=== PATIENT | male | born 1955 | race Caucasian/White ===

== ENCOUNTER → 2018-07-02 | Outpatient (CLI) | payer OTHER ==
[~2018-07-02] MED LIST: ASPIRIN81 M1 PO; ATIVAN1 MG PO; AUGMENTIN 875 M1 TAB PO; MULTI VITAMINS1 TAB PO; ZESTRIL30 MG PO; ZOCOR40 MG PO
== END | disposition home or self-care (01) ==
LOC: RAD 16:11
DX: M47.897 Other spondylosis, lumbosacral region (principal); M75.31 Calcific tendinitis of right shoulder; M75.41 Impingement syndrome of right shoulder; Z91.81 History of falling

== ENCOUNTER 2022-10-03 10:33 | Emergency (ER) | payer OTHER ==
[~2022-10-03] VITALS: Ht 172.7 cm; Wt 78.0 kg
[2022-10-03 10:54] LABS: BASO # 0.1 10*3/uL (0.0-0.1); EOS # 0.1 10*3/uL (0.0-0.4); EOS % 1.1 % (1.0-4.0); HEMATOCRIT 42.9 % (42.0-52.0); LYMPH # 2.1 10*3/uL (1.3-4.4); LYMPH % 20.6 % (27.0-41.0); MEAN CELL VOLUME 90.7 fl (80.0-94.0); MEAN CORPUSCULAR HGB 30.2 pg (27.0-31.0); MEAN CORPUSCULAR HGB CONC 33.3 g/dl (33.0-37.0); MEAN PLATELET VOLUME 9.2 fl (9.6-12.3); NEUT # 6.6 10*3/uL (2.3-7.9); NEUT % 65.7 % (47.0-73.0); PLATELET COUNT AUTOMATED 332 10*3/uL (130-400); RED BLOOD COUNT 4.73 10*6/uL (4.50-5.90); RED CELL DISTRI WIDTH 14.3 % (0-14.5); WHITE BLOOD COUNT 10.1 10*3/uL (4.8-10.8)
[2022-10-03 11:11] LABS: ALKALINE PHOSPHATASE 65 U/L (46-116); BUN 16 mg/dl (9-23); CHLORIDE 102 mmol/L (98-107); POTASSIUM 3.4 mmol/L (3.4-5.1); SGPT/ALT 41 U/L (10-49); TOTAL PROTEIN 6.6 gm/dL (6.0-8.0)
== END 2022-10-03 12:00 | disposition short-term general hospital (02) ==
LOC: ED 10:33
PROVIDERS: Emergency Medicine
DX: I46.9 Cardiac arrest, cause unspecified (principal); Z90.49 Acquired absence of other specified parts of digestive tract; I10 Essential (primary) hypertension; E78.5 Hyperlipidemia, unspecified

== ENCOUNTER 2023-08-21 19:21 | Emergency (ER) | payer OTHER, MEDICARE ==
[~2023-08-21] VITALS: Ht 604.5 cm; Wt 82.6 kg
[2023-08-21] MEDS ORDERED: PLAVIX75 M1 PO (20:04)
== END 2023-08-21 22:03 | disposition home or self-care (01) ==
LOC: ED 19:21
DX: H92.21 Otorrhagia, right ear (principal); I10 Essential (primary) hypertension; F41.9 Anxiety disorder, unspecified; E78.00 Pure hypercholesterolemia, unspecified; Z90.49 Acquired absence of other specified parts of digestive tract

== ENCOUNTER 2023-08-23 14:19 | Emergency (ER) | payer OTHER, MEDICARE ==
[~2023-08-23] VITALS: Ht 175.2 cm; Wt 82.6 kg
[~2023-08-23 14:19] MED LIST changes: +PLAVIX75 M1 PO
== END 2023-08-23 15:59 | disposition home or self-care (01) ==
LOC: ED 14:19
DX: T16.1XXA Foreign body in right ear, initial encounter (principal); F41.9 Anxiety disorder, unspecified; I10 Essential (primary) hypertension; E78.00 Pure hypercholesterolemia, unspecified; Z90.49 Acquired absence of other specified parts of digestive tract

== ENCOUNTER 2023-11-24 15:25 | Emergency (ER) | payer OTHER, MEDICARE ==
[~2023-11-24] VITALS: Ht 167.6 cm; Wt 85.3 kg
[2023-11-24 16:43] LABS: BILIRUBIN Negative (Negative); BLOOD 2+ (Negative); CLARITY Clear (Clear); COLOR Yellow (Yellow); GLUCOSE Negative (Negative); KETONE 1+ (Negative); LEUKO ESTERASE Negative (Negative); NITRITE Negative (Negative); PH 5.5 (4.5-8.0); UROBILINOGEN 0.2 E.U./dl (0.0-1.0)
[2023-11-24 16:51] LABS: BACTERIA 1+; RBC 21-30 rbc/hpf (0-2)
[2023-11-24] MEDS ORDERED: Ciprofloxacin Hydrochloride 500 MG TAB PO ONE (17:40)
[2023-11-24] MEDS ORDERED: Tamsulosin Hydrochloride 0.4 MG CAP PO ONE (17:40)
[2023-11-24] MEDS ORDERED: FLOMAX0.4 MG PO (17:52)
[2023-11-24] MEDS ORDERED: CIPRO500 MG PO (17:52)
[2023-11-24] MEDS ORDERED: KETOROLAC10 MG PO (17:52)
== END 2023-11-24 17:58 | disposition home or self-care (01) ==
LOC: ED 15:25
PROVIDERS: Nurse Practitioner Family
DX: N13.2 Hydronephrosis with renal and ureteral calculous obstruction (principal); I10 Essential (primary) hypertension; F41.9 Anxiety disorder, unspecified; E78.00 Pure hypercholesterolemia, unspecified; Z90.49 Acquired absence of other specified parts of digestive tract; F17.200 Nicotine dependence, unspecified, uncomplicated

== ENCOUNTER 2024-08-31 12:19 | Emergency (ER) | payer OTHER ==
[~2024-08-31 12:19] MED LIST changes: +CIPRO500 MG PO; +FLOMAX0.4 MG PO; +KETOROLAC10 MG PO
[2024-08-31] MEDS ORDERED: LISINOPRIL10 M1 PO (12:51)
[2024-08-31] MEDS ORDERED: LORAZEPAM1 MG PO (12:51)
[2024-08-31] MEDS ORDERED: ROSUVASTATIN CA10 MG PO (12:51)
[2024-08-31 13:12] LABS: BASO # 0.1 10*3/uL (0.0-0.1); BASO % 0.9 % (0.0-1.0); EOS # 0.1 10*3/uL (0.0-0.4); EOS % 0.6 % (1.0-4.0); HEMATOCRIT 48.4 % (42.0-52.0); MEAN CELL VOLUME 93.3 fl (80.0-94.0); MEAN CORPUSCULAR HGB 30.1 pg (27.0-31.0); MEAN CORPUSCULAR HGB CONC 32.2 g/dl (33.0-37.0); MEAN PLATELET VOLUME 9.7 fl (9.6-12.3); MONO # 0.8 10*3/uL (0.1-1.0); MONO % 9.8 % (3.0-9.0); NEUT # 5.8 10*3/uL (2.3-7.9); NEUT % 71.2 % (47.0-73.0); PLATELET COUNT AUTOMATED 272 10*3/uL (130-400); RED BLOOD COUNT 5.19 10*6/uL (4.50-5.90); RED CELL DISTRI WIDTH 13.6 % (0-14.5); WHITE BLOOD COUNT 8.2 10*3/uL (4.8-10.8)
[2024-08-31 13:23] LABS: ACT PARTIAL THROMBO TIME 27.6 SECONDS (20.0-32.1)
[2024-08-31 13:33] LABS: ALKALINE PHOSPHATASE 80 U/L (46-116); BUN 12 mg/dl (9-23); CHLORIDE 106 mmol/L (98-107); POTASSIUM 4.7 mmol/L (3.4-5.1); SGPT/ALT 28 U/L (5-49); TOTAL PROTEIN 7.3 gm/dL (6.0-8.0)
== END 2024-08-31 16:20 | disposition left against medical advice (07) ==
LOC: ED 12:19
PROVIDERS: Internal Medicine
DX: R00.8 Other abnormalities of heart beat (principal); R42 Dizziness and giddiness; I10 Essential (primary) hypertension; E78.5 Hyperlipidemia, unspecified; Z79.899 Other long term (current) drug therapy; Z53.29 Procedure and treatment not carried out because of patient's decision for other reasons